=== PATIENT | female | born 1995 | race Caucasian/White ===

== ENCOUNTER 2016-11-23 17:12 | Emergency (ER) | payer MEDICAID ==
[2016-11-23 17:21] VITALS: BP 87/54; PULSE 91; RESP 16; TEMP 98.3; O2SAT 100
--- NOTE | 2016-11-23 17:52 | ED PDOC ---
HPI: Dental Pain/Injury Time Seen by Provider: 11/23/16 17:25 Chief Complaint (Nursing): Dental Pain Chief Complaint (Provider): Dental Pain History Per: Patient History/Exam Limitations: no limitations Onset/Duration Of Symptoms: Days (x3 weeks) Current Symptoms Are (Timing): Still Present Additional Complaint(s): Bianka Higgins is a 21 year old female, with no past medical history, PMD: None provided Past Medical History Reviewed: Historical Data, Nursing Documentation, Vital Signs Vital Signs: Last Vital Signs Temp 98.3 F 11/23/16 17:18 Pulse 91 H 11/23/16 17:18 Resp 16 11/23/16 17:18 BP 87/54 L 11/23/16 17:18 Pulse Ox 100 11/23/16 17:18 - Medical History PMH: No Chronic Diseases - Family History Family History: States: Unknown Family Hx - Immunization History Hx Tetanus Toxoid Vaccination: No Hx Influenza Vaccination: No Hx Pneumococcal Vaccination: No - Home Medications Home Medications: Ambulatory Orders Medication Instructions Recorded No Known Home Med 08/09/16 - Allergies Allergies/Adverse Reactions: Allergies Allergy/AdvReac Type Severity Reaction Status Date / Time No Known Allergies Allergy Verified 11/06/16 17:25 Review of Systems ROS Statement: Except As Marked, All Systems Reviewed And Found Negative - ECG O2 Sat by Pulse Oximetry: 100 Disposition - Disposition Forms: [employer] (Korean)
--- NOTE | 2016-11-23 18:14 | ED PDOC ---
HPI: Dental Pain/Injury Time Seen by Provider: 11/23/16 17:25 Chief Complaint (Nursing): Dental Pain Chief Complaint (Provider): mouth lesions History Per: Patient History/Exam Limitations: no limitations Additional Complaint(s): 21yo F in Ed for eval of mouth lesions-states that she has lesion in lower oral muscosa x 3weeks with increase in size no pain but discomfort with eating and some drainage of yellow liquid. denies fever chills sore throat ear pain gum bleeding. was seen for simliar 1 week ago and advised to f.u with specialist, but states she hasn't yet. Past Medical History Reviewed: Historical Data, Nursing Documentation, Vital Signs Vital Signs: Last Vital Signs Temp 98.3 F 11/23/16 17:18 Pulse 91 H 11/23/16 17:18 Resp 16 11/23/16 17:18 BP 87/54 L 11/23/16 17:18 Pulse Ox 100 11/23/16 18:11 - Medical History PMH: No Chronic Diseases - Family History Family History: States: Unknown Family Hx - Immunization History Hx Tetanus Toxoid Vaccination: No Hx Influenza Vaccination: No Hx Pneumococcal Vaccination: No - Home Medications Home Medications: Ambulatory Orders Medication Instructions Recorded Clindamycin [Cleocin] 300 mg PO TID #30 cap 11/23/16 Methylprednisolone [Medrol Dose 4 mg PO DAILY #21 mg 11/23/16 Pack (21 tabs)] - Allergies Allergies/Adverse Reactions: Allergies Allergy/AdvReac Type Severity Reaction Status Date / Time No Known Allergies Allergy Verified 11/06/16 17:25 Review of Systems ROS Statement: Except As Marked, All Systems Reviewed And Found Negative ENT: Positive for: Mouth Pain Physical Exam - Reviewed Nursing Documentation Reviewed: Yes Vital Signs Reviewed: Yes - Physical Exam Appears: Positive for: Well, Non-toxic, No Acute Distress Skin: Positive for: Normal Color, Warm, DRY ENT: Positive for: Other (mouth lower palate-noted a large mucucele spaning the length of the right frontal aspect of the palate without bleeding drainage or tenderness) Cardiovascular/Chest: Positive for: Regular Rate, Rhythm Respiratory: Positive for: Normal Breath Sounds Neurologic/Psych: Positive for: Alert, Oriented - ECG O2 Sat by Pulse Oximetry: 100 - Progress ED Course And Treament: MD melanie saw the pt. no intervention required at this time. Medical Decision Making Medical Decision Making: pt will be d/c with cleocin/medrol dose pack and adivsed to have eval with [facility]. pt requirest a hosp. in [facility]. pt referred to [facility]. Disposition - Clinical Impression Clinical Impression: Mucocele of mouth - Patient ED Disposition Is Patient to be Admitted: No Counseled Patient/Family Regarding: Diagnosis, Need For Followup, Rx Given - Disposition Disposition: Routine/Home Disposition Time: 18:16 Condition: GOOD Additional Instructions: [facility]. Address: [address] [place] [address] Prescriptions: Clindamycin [Cleocin] 300 mg PO TID #30 cap Methylprednisolone [Medrol Dose Pack (21 tabs)] 4 mg PO DAILY #21 mg Instructions: Clindamycin (By mouth) Forms: [facility] (Greenlandic) Print Language: WELSH
== END 2016-11-23 18:20 | disposition home or self-care (01) ==
LOC: H.ER 17:12
DX: K13.0 Diseases of lips (principal)